=== PATIENT | male | born 1965 | race Caucasian/White ===

== ENCOUNTER 2018-03-24 16:00 | Emergency (ER) | payer OTHER ==
[~2018-03-24] VITALS: Ht 182.9 cm; Wt 83.9 kg
[2018-03-24 16:04] VITALS: Ht 182.9 cm; Wt 83.9 kg
[2018-03-24 17:45] VITALS: BP 121/67
== END 2018-03-24 17:45 | disposition home or self-care (01) ==
LOC: ED 16:00
DX: S52.502A Unspecified fracture of the lower end of left radius, initial encounter for closed fracture (principal); S52.602A Unspecified fracture of lower end of left ulna, initial encounter for closed fracture; I10 Essential (primary) hypertension; W01.0XXA Fall on same level from slipping, tripping and stumbling without subsequent striking against object, initial encounter; Y93.89 Activity, other specified; Y92.828 Other wilderness area as the place of occurrence of the external cause; Y99.8 Other external cause status

== ENCOUNTER 2018-09-17 02:51 | Emergency (ER) | payer OTHER ==
[2018-09-17 02:57] VITALS: Ht 182.9 cm
[2018-09-17 04:06] LABS: BASOPHIL % 0.3 % (0-2); PLATELET COUNT 169 x10^3mcL (130-400); RED CELL DISTRIBUTION WIDTH 13.8 % (11.5-14.5)
[2018-09-17 04:33] LABS: BILIRUBIN TOTAL 0.36 mg/dL (0.20-1.00); CARBON DIOXIDE 30.4 mmol/L (21-32); POTASSIUM SERUM 4.1 mmol/L (3.5-5.1); TOTAL PROTEIN, SERUM 7.5 g/dL (6.4-8.2)
[2018-09-17 04:36] LABS: ALBUMIN 3.1 g/dL (3.4-5.0)
[2018-09-17 04:38] LABS: CREATININE SERUM 12.6 mg/dL (0.7-1.3)
[2018-09-17 05:51] VITALS: BP 108/64
== END 2018-09-17 05:51 | disposition home or self-care (01) ==
LOC: ED 02:51
PROVIDERS: Emergency Medicine
DX: E11.649 Type 2 diabetes mellitus with hypoglycemia without coma (principal); E11.22 Type 2 diabetes mellitus with diabetic chronic kidney disease; I12.0 Hypertensive chronic kidney disease with stage 5 chronic kidney disease or end stage renal disease; N18.6 End stage renal disease; Z99.2 Dependence on renal dialysis
CPT/HCPCS: 36415; 82962; Q0092